=== PATIENT | female | born 1945 | race Caucasian/White ===

== ENCOUNTER 2023-11-28 14:49 | Emergency (ER) | payer MEDICARE, SELFPAY ==
--- NOTE | 2023-11-28 15:00 | ED.URI ---
HPI - URI/Sore Throat General Chief Complaint: Upper Respiratory Infection Stated Complaint: chest/head/throat/fatigue Time Seen by Provider: 11/28/23 14:55 Source: patient Mode of arrival: ambulatory Limitations: no limitations History of Present Illness HPI Narrative: Patient is a 78-year-old female who presents with 10 days of cough, ear fullness, head congestion. Cough is worse at night. Patient been taking antihistamines and Mucinex. Denies any fever, chills, nausea, vomiting, diarrhea, sore throat. Related Data Home Medications Medication Instructions Recorded Confirmed atorvastatin 40 mg tablet 40 mg PO DAILY 11/28/23 11/28/23 lisinopril 20 mg tablet 20 mg PO DAILY 11/28/23 11/28/23 Allergies Allergy/AdvReac Type Severity Reaction Status Date / Time No Known Allergies Allergy Verified 11/28/23 15:15 Review of Systems Review of Systems: All systems reviewed & are unremarkable except as noted in HPI and below Constitutional: Constitutional: Denies body ache(s), Denies chills, Denies fatigue, Denies fever(s), Denies headache(s), Denies malaise and Denies weakness Eyes: Eyes: Denies blurry vision, Denies itchy eyes and Denies loss of vision ENT: Denies otalgia, Denies headache(s), Reports nasal congestion, Reports sinus pain, Reports sinus pressure and Denies sore throat Cardiovascular: Cardiovascular: Denies chest pain, Denies irregular heart rhythm and Denies dyspnea Respiratory: Respiratory: Reports cough and Denies dyspnea Gastrointestinal: Gastrointestinal: Denies abdominal pain, Denies diarrhea, Denies nausea and Denies vomiting Musculoskeletal: Musculoskeletal: Denies back pain, Denies myalgias and Denies arthralgias Integumentary/Breasts: Skin/Breast: Denies pruritus and Denies rash Neurologic: Denies headache(s), Denies loss of vision and Denies weakness Psychiatric: Psychiatric: Reports no additional psychiatric complaints Endocrine: Endocrine: Denies fatigue Allergic/Immunologic: Allergic/Immunologic: Denies itchy eyes PMFSH Comments At time of signature, agree with nursing past medical, surgical, social and family history. There is no relevant family history pertinent to the presenting complaint. Exam Const: General: cooperative, healthy appearing, comfortable, no acute distress and well nourished Nutritional Appearance: well nourished Orientation/consciousness: patient oriented x3 Limitations: no limitations HENMT: Head: normal to inspection, normocephalic and atraumatic Ears: hearing grossly normal bilaterally, external ears normal, TM's normal bilaterally, EAC's normal and no periauricular adenopathy Face/Nose/Sinus: Normal external nose present, Abnormal mucous membranes and turbinates present erythematous bilateral and diffuse, normal facial exam, face symmetric and Facial tenderness on exam of face and sinuses Face and sinus: normal facial exam, sinuses nontender and face symmetric Mouth: Yes Normal oral and palatal mucosa present, Yes lip normal, Yes tongue normal, Yes Normal salivary glands and ducts present, Yes oropharynx normal and Yes moist mucous membranes Teeth and gingiva: dentition normal Throat: posterior oropharynx normal, tonsils normal and uvula midline Eyes: General: appearance normal, both eyes and all related structures Alignment and Position: alignment normal and position normal Periorbital: periorbital findings normal Eyelids: eyelids normal Pupils: Equal, round and reactive pupils present Neck: Neck: normal visual inspection, full ROM, no lymphadenopathy and supple Chest: Chest palpation & inspection: normal inspection of the chest and normal palpation of entire chest wall Resp: Effort & Inspection: normal respiratory effort and able to speak in complete sentences Auscultation: clear to auscultation bilaterally, no crackles, no rales, no rhonchi and no wheezes Cardio: Rate: regular rate Rhythm: regular rhythm Heart sounds: S1 normal heart sound present
[2023-11-28 15:03] VITALS: BP 155/72; PULSE 93; RESP 16; TEMP 36.5; O2SAT 94
== END 2023-11-28 16:09 | disposition home or self-care (01) ==
PROVIDERS: Emergency Provider Nurse Practitioner Family; PCP Hospitalist
DX: J01.40 Acute pansinusitis, unspecified (principal); Z79.899 Other long term (current) drug therapy
CPT/HCPCS: 99213; G0463

== ENCOUNTER 2025-10-22 15:09 | Emergency (ER) | payer MEDICARE, SELFPAY ==
--- OUTSIDE RECORDS SUMMARY | 2025-10-22 15:11 | XMS_ITS | Data Portability ---
Author Organization [facility] Address [address] [place] [address] [place] [address] Care Team Providers Care Boat Canvas Installer Name Role Phone RADHA BAILEY Primary Care Provider [phone] Assessment Encounter Date Assessment Date Assessment LastModified by Organization Details LastModified Time 04/20/2025 04/20/2025 Ms. Li presents to the office today for hospital follow-up after being admitted from 04/06 to 04/08 due to a fall resulting in a subdural hematoma and subarachnoid hemorrhage. During the visit, the patient reports feeling well and denies any new or worsening symptoms. She is alert, oriented, and in no apparent distress. A neurosurgery follow-up is scheduled for 05/10. Not available 04/23/2025 08:49:28 05/12/2025 05/12/2025 Ms. Li presents for scalp staple removal placed 4 weeks ago after head injury. Denies pain, drainage, redness, or other concerns. Healing well, no associated symptoms. Not available 06/01/2025 17:45:06 05/18/2025 05/18/2025 Ms. Matthew presents for follow up appointment. Not available 06/01/2025 17:55:05 06/16/2025 06/16/2025 Ms. Li is here for Medicare wellness exam. Not available 06/27/2025 19:26:40 Plan of Treatment Reminders Order Date Submit Date Provider Last Modified By Organization Details Last Modified Time Details Appointments ANY 15 2024 10:45A M RADHA BAILEY NP Not available Not available Not available ANY 15 2025 01:45P M RADHA BAILEY NP Not available Not available Not available Lab None recorded. Referral None recorded. Procedures None recorded. Surgeries None recorded. Imaging None recorded. Medication Orders amlodipin e 5 mg tablet 2024 025 [facility], [address] [place] [address], [address], 05/18/2025 15:45:21 Patient TargetsNo targets recorded. Patient Instructions Encounter Date Encounter Id Patient Instructions Last Modified By Organization Details Last Modified Time 04/20/2025 [id number] A healthy lifestyle: care instructions Not available 04/23/2025 08:47:50 - Always present to ER or Urgent Care with any progression of/alarming symptoms, significant changes in symptoms or any concerning or urgent matters Not available 04/23/2025 08:31:05 05/12/2025 [id number] - Always present to ER or Urgent Care with any progression of/alarming symptoms, significant changes in symptoms or any concerning or urgent matters Not available 06/01/2025 17:52:20 05/18/2025 [id number] - Always present to ER or Urgent Care with any progression of/alarming symptoms, significant changes in symptoms or any concerning or urgent matters Not available 06/01/2025 17:57:42 06/16/2025 [id number] advance care planning: care instructions Not available 06/16/2025 15:26:27 preventing falls : care instructions Not available 06/16/2025 15:26:27 Quitting Tobacco : Care Instructions Not available 06/16/2025 15:26:27 Medicare Wellnes s Preventive Checklist Not available 06/16/2025 15:26:27 eating healthy foods: care instructions Not available 06/16/2025 15:26:27 AD8 Dementia Screening Interview Not available 06/16/2025 15:26:27 - Always present to ER or Urgent Care with any progression of/alarming symptoms, significant changes in symptoms or any concerning or urgent matters Not available 06/27/2025 19:26:13 Reason for Referral None Reported. Results Created Date Observation Date Name Description Value Unit Range Abnormal Flag Note LastModifiedBy Organization Detail LastModifiedTime 10/17/20 25 10/17/2025 imagi ng/di agnos tic resul t No observ ation record ed. [address] , [place], [address], 10/18/2025 08:27:18 Result Notes None recorded. Problems Name Problem SNOMED Code Status Onset Date Resolution Date Notes Provider Name and Address Organization Details Recorded Time Hypertensiv e disorder 98709767 Active 2023 RADHA BAILEY NP Attn: Darwin guthrie,[address] [facility], [place], [address], [place] [facility] 4 14:57:35 Hyperlipide caitlin 09330042 Active 2023 RADHA BAILEY NP Attn: Darwin guthrie,[address] [facility], [place], [address], [place] [facility] 4 14:57:43 Colonoscopy declined 3789468602157 00 Active 2023 RADHA BAILEY NP Attn: Darwin guthrie,[address] [facility], [place], [address], [place] [facility] 4 15:08:21 Lumbago with sciatica 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 Active 2023 RADHA BAILEY NP Attn: Darwin guthrie,[address] [facility], [place], [address] [facility] 4 15:08:23 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 Procedures Surgical History Date Name Laterality Status Provider Name and Address Organization Details Recorded Time cholecystectomy completed Macey Johnson LPN [facility] 03/10/2024 14:32:37 excision of cyst of ovary completed Macey Johnson LPN [facility] 03/10/2024 14:33:09 Imaging Results None recorded. Procedure Notes None recorded. Medical Equipment None Reported. Allergies Allergen ID Allergen Name Allergen Category Reaction Reaction Severity Criticality Documentation Date Start Date Code Code System Note Provider Name and Address Organization Details Recorded Time 618022 morphine medicatio n rash Not available Not available 04/22/20252011 7052 RxNorm RADHA BAILEY NP Attn: Darwin guthrie,[address] [facility], [place], [address], [facility] 5 08:45:17 Medications Name Sig Start Date Stop Date Status Note LastModified by Organization Details LastModified Time atorvastati n 40 mg tablet TAKE 1 TABLET BY MOUTH ONCE DAILY IN THE EVENING active Not Available Not Available No t Available azithromyci n 250 mg tablet TAKE 2 TABLETS BY MOUTH ON DAY 1, AND THEN TAKE 1 TABLET BY MOUTH ONCE A DAY ON DAY 2 THROUGH DAY 5 04/20 completed Not Available Not Available Not Available levetiracet am 500 mg tablet TAKE 1 TABLET BY MOUTH TWICE DAILY FOR 11 DOSES 04/20 completed Not Available Not Available Not Available hydrocodone 5 mg-acetamin ophen 325 mg tablet TAKE 1 TABLET BY MOUTH EVERY 6 HOURS NEEDED FOR PAIN FOR UP TO 8 DOSES 10/21 completed Not Available Not Available Not Available lisinopril 20 mg tablet TAKE 1 TABLET BY MOUTH TWICE DAILY active Not Available Not Available No t Available amlodipine 2.5 mg tablet TAKE 1 TABLET BY MOUTH ONCE DAILY 06/01 completed Not Available Not Available Not Available amlodipine 5 mg tablet Take 1 tablet every day by oral route for 30 days. 2024 active Not Available Not Available Not Avai lable doxycycline monohydrate 100 mg tablet TAKE 1 TABLET BY MOUTH TWICE DAILY FOR 7 DAYS 03/10 completed Not Available Not Available Not Available benzonatate 100 mg capsule TAKE 1 CAPSULE BY MOUTH TWICE DAILY NEEDED FOR COUGH 03/10 completed Not Available Not Available Not Available lidocaine 5 % topical patch APPLY 1 TOPICALLY ONCE DAILY (MAY WEAR UP TO 12 HOURS) active Not Available Not Available No t Available methylpredn isolone 4 mg tablets in a dose pack USE DIRECTED active Not Available Not Available No t Available fluticasone propionate 50 mcg/actuati on nasal spray,suspe nsion [place] 1 spray every day by intranasa l route as needed. 04/20 completed PRN (10/07) Not Available Not Available Not Available loratadine 10 mg tablet Take 1 tablet every day by oral route for 30 days. 04/20 completed Not Available Not Available Not Available naproxen 500 mg tablet TAKE 1 TABLET BY MOUTH TWICE DAILY WITH MEALS active Not Available Not Available No t Available Vitals Date Recorded Body height Respiratory rate Body mass index (BMI) Body weight Body temperature Heart rate Oxygen saturation Systolic And Diastolic Provider Name and Address Organization Details Last Updated DateTime 5 154.94 cm 16 /min 27.6 kg/m2 97495.2 4 g 96.4 [degF] 83 /min 95 % 152/79 mm[Hg] [facility] 5 14:55:54 Date Recorded Body height Respiratory rate Body mass index (BMI) Body weight Body temperature Heart rate Oxygen saturation Systolic And Diastolic Provider Name and Address Organization Details Last Updated DateTime 5 154.94 cm 16 /min 27.6 kg/m2 21331.2 4 g 96.3 [degF] 84 /min 96 % 149/77 mm[Hg] Alexa [facility] 5 14:19:34 Date Recorded Body height Body mass index (BMI) Body weight Oxygen saturation Heart rate Respiratory rate Body temperature Systolic And Diastolic Provider Name and Address Organization Details Last Updated DateTime 5 154.94 cm 27.5 kg/m2 56179.0 4 g 98 % 87 /min 16 /min 97 [degF] 160/77 mm[Hg] Macey Johnson LPN [facility] 5 15:32:09 Date Recorded Body height Body mass index (BMI) Body weight Oxygen saturation Heart rate Respiratory rate Body temperature Systolic And Diastolic Provider Name and Address Organization Details Last Updated DateTime 5 154.94 cm 27.1 kg/m2 44003.4 6 g 93 % 82 /min 16 /min 96.4 [degF] 111/66 mm[Hg] Jessica Neri MA [facility] 5 15:16:04 Date Recorded Body height Body temperature Respiratory rate Oxygen saturation Heart rate Systolic And Diastolic Provider Name and Address Organization Details Last Updated DateTime 5 154.94 cm 97.3 [degF] 16 /min 95 % 71 /min 180/81 mm[Hg] Maribel Zhong MA [facility] 5 12:08:52 Social History Question Answer Notes LastModified by Organizat ion Details LastModified Time Tobacco Smoking Status Former Smoker stopped 12 years ago20 Macey Johnson LPN [facility], [facility] 03/10/2024 14:28:22 Do You Have An Advance Directive? No Information not available 03/10/2024 Are You Blind Or Do You Have Difficulty Seeing? No Information not available 03/10/2024 What Is Your Level Of Caffeine Consumption? Moderate Coffee Information not available 10/07/2024 In The 14 Days Before Symptom Onset, Have You Had Close Contact With A Laboratory-confir med COVID-19 While That Case Was Ill? No Information not available 03/10/2024 In The 14 Days Before Symptom Onset, Have You Had Close Contact With A Person Who Is Under Investigation For COVID-19 While That Person Was Ill? No Information not available 03/10/2024 Have You Been To An Area Known To Be High Risk For COVID-19? No Information not available 03/10/2024 Are You Deaf Or Do You Have Serious Difficulty Hearing? No Information not available 03/10/2024 What Type Of Diet Are You Following? REGULAR Information not available 03/10/2024 Are There Any Guns Present In Your Home? No Information not available 03/10/2024 What Was The Date Of Your Most Recent Tobacco Screening? 10/21/2025 Information not available 10/21/2025 How Many Children Do You Have? 3 Information not available 03/10/2024 What Is Your Current Pack Years? 30ormorepack years Information not available 06/16/2025 What Is Your Relationship Status? Information not available 03/10/2024 Do You Use Your Seat Belt Or Car Seat Routinely? Yes Information not available 03/10/2024 Do You Have Smoke And Carbon Monoxide Detectors In Your Home? Yes Information not available 03/10/2024 At What Age Did You Start Smoking Tobacco? 19 Information not available 03/10/2024 Are You Passively Exposed To Smoke? No Information no t available 03/10/2024 How Much Tobacco Do You Smoke? No Information not available 06/16/2025 Do You Use Sunscreen Routinely? No Information not available 03/10/2024 Has Tobacco Cessation Counseling Been Provided? Yes Information not available 10/07/2024 On What Date Was Tobacco Cessation Counseling Provided? 10/21/2025 Information not available 10/21/2025 How Many Years Have You Smoked Tobacco? 47 Information not available 03/10/2024 Sex: Female Functional Status Question Answer Note LastModified by Organizat ion Details LastModified Time Do you use any illicit or recreational drugs? No Information not available 03/10/2024 Do you or have you ever used any other forms of tobacco or nicotine? No Information not available 03/10/2024 What is your level of alcohol consumption? Occasional Information not available 03/10/2024 Are you currently employed? No Information not available 03/10/2024 Are you able to care for yourself independently? Yes Information not available 03/10/2024 What is your exercise level? Moderate walk daily Information not available 03/10/2024 Mental Status Question Answer Note LastModified by Organization D etails LastModified Time Do you feel stressed (tense, restless, nervous, or anxious, or unable to sleep at night)? [id number] Information not available 03/10/2024 Family History Relationship Description Onset Age of this Age Resolved Age Notes LastModified by Organization Details LastModified Time Father No current problems or disability [email or web address] Not available 08/2024 14:26:56 Mother No current problems or disability [email or web address] Not available 08/2024 14:26:56 Notes:Updated: 12/07/23, Medical History Condition Response Muscle, Joint, or Bone Problems Y High Blood Pressure Y Arthritis Y GI Problems Y Anemia Y Gynecological HistoryNo gynecological history recorded. Obstetrics History GPAL:G 3 P 3 0 0 2 Type Value Full Term 3 Living 2 Total 3 Immunizations Vaccine Type Date Status Note Provider Nam e and Address Organization Details Recorded Time Influenza, high-dose, quadrivalent, PF 0 completed RADHA BAILEY NP Attn: [address] [place], [address], [place] [facility] 03/10/2024 14:56:12 Influenza, high-dose, quadrivalent, PF 3 completed RADHA BAILEY NP Attn: [address] [place], [address], [place] [facility] 03/10/2024 14:56:12 Influenza, high-dose, quadrivalent, PF 1 completed RADHA BAILEY NP Attn: [address] [place], [address], [place] [facility] 03/10/2024 14:56:12 Influenza, high-dose, quadrivalent, PF 2 completed RADHA BAILEY NP Attn: [address] [place], [address], [place] [facility] 03/10/2024 14:56:12 COVID-19, mRNA, LNP-S, PF, 100 mcg/0.5mL dose or 50 mcg/0.25mL dose 1 completed RADHA BAILEY SERV[employer] TECHNICIAN COPIER Attn: [address] [facility], [place], [place], [address] [place] [address], [place] [facility] 03/10/2024 14:56:12 COVID-19, mRNA, LNP-S, PF, 100 mcg/0.5mL dose or 50 mcg/0.25mL dose 1 completed RADHA BAILEY, SERVICE TECHNICIAN COPIER Attn: [address] [facility], [place], [place], [address] [place] [address], [place] [facility] 03/10/2024 14:56:12 COVID-19, mRNA, LNP-S, PF, 100 mcg/0.5mL dose or 50 mcg/0.25mL dose 1 completed RADHA BAILEY, SERVICE TECHNICIAN COPIER Attn: [address] [facility], [place], [place], [address] [place] [address], [place] [facility] 03/10/2024 14:56:12 COVID-19, mRNA, LNP-S, bivalent, PF, 50 mcg/0.5 mL or 25mcg/0.25 mL dose 2 completed RADHA BAILEY, SERVICE TECHNICIAN COPIER Attn: [address] [facility], [place], [place], [address] [place] [address], [place] [facility] 03/10/2024 14:56:12 COVID-19, mRNA, LNP-S, PF, deandra-sucrose, 30 mcg/0.3 mL 3 completed RADHA BAILEY, SERVICE TECHNICIAN COPIER Attn: [address] [facility], [place], [place], [address] [place] [address], [place] [facility] 03/10/2024 14:56:12 pneumococcal polysaccharide PPV23 1 completed RADHA BAILEY, SERVICE TECHNICIAN COPIER Attn: [address] [facility], [place], [place], [address] [place] [address], [place] [facility] 03/10/2024 14:56:12 influenza, unspecified formulation 3 completed RADHA BAILEY, SERVICE TECHNICIAN COPIER Attn: [address] [facility], [place], [address], [place] [facility] 03/10/2024 14:56:12 Tdap 1 completed RADHA BAILEY NP Attn: [address] [facility], [place], [address], [place] [facility] 03/10/2024 14:56:12 Pneumococcal conjugate PCV 13 2 completed RADHA BAILEY NP Attn: [address] [facility], [place], [address], [place] [facility] 03/10/2024 14:56:12 Pneumococcal conjugate PCV 13 7 completed RADHA BAILEY NP Attn: [address] [facility], [place], [place], [address] [place] [address], [place] [facility] 03/10/2024 14:56:12 Pneumococcal conjugate PCV 13 7 completed RADHA BAILEY NP Attn: [address]ing[address] [facility], [place], [address], [place] [facility] 03/10/2024 14:56:12 Influenza, recombinant, trivalent, PF 4 completed Not Available [facility] 10/21/2025 10:55:27 COVID-19, mRNA, LNP-S, PF, 50 mcg/0.5 mL 4 completed Not Available [facility] 10/21/2025 10:55:27 Tdap 5 completed Not Available [facility] 10/21/2025 10:55:27 COVID-19, mRNA, LNP-S, PF, 10 mcg/0.2 mL 5 completed Not Available [facility] 10/21/2025 10:55:27 Influenza, high-dose, trivalent, PF 5 completed [facility] Available [facility] 10/21/2025 10:55:27 Past Encounters Encounter ID Performer Location Encounter Start Date Encounter Closed Date Diagnosis/Indication Diagnosis SNOMED-CT Code Diagnosis ICD10 Code Diagnosis IMO Codes Diagnosis Note [id number] RADHA BAILEY NP [facility] [address] [place] [address] 03/10/2024 13:58:47 03/18/2024 13:00:36 Hypertensive disorder 56035732 I10 - b/p in office today 183/76, repeat 166/76- Continue medication as prescribed and diet/exerc ise as previously discussed. - Take occasional BP s , call if consistent ly >140/90.- Discussed reasons for sooner f/u than 6 months.- Patient verbalizes understand ing. Adult [facility] th examination 656268586 Z00.00 - Discussed with patient findings, diagnoses, and prognosis. - Discussed plan of care including treatment options, risks, and benefits with patients. Patient expressed understand ing.- The following interventi ons were recommende d: heart healthy low-fat, low-sodium diet, ideal body weight, regular exercise, medication s compliance , and medical follow-up as noted. Hyperlipidemia 76671594 E78.5 Lumbago with sciatica 20 5062725 M54.42 - Apply heat to low back 10-15 minutes 3 times a day. - No heavy lifting over 10 LBS. - Stretching exercises per handout twice daily. ( take muscle relaxer/pa in med- 15 min prior) - Avoid bending or twisting at the waist; keep hips and shoulders aligned at all times. - Avoid sitting if possible, unless it feels better than standing. - Do not do anything that makes your symptoms worse. - RTC for worsening symptoms Colonoscopy declined 517 3176062 88134 Z53.20 - Patient declined [id number] RADHA BAILEY NP [facility] [address] [place] [address] 03/30/2024 15:22:36 04/03/2024 14:10:40 Hypertensive disorder 53982656 I10 - b/p in office today 171/95- Continue medication as prescribed and diet/exerc ise as previously discussed. - Take occasional BP s , call if consistent ly >140/90.- Discussed reasons for sooner f/u than 3 weeks- Patient verbalizes understand ing. Obesity 326194271 E66.9 advised low fat, low cholestero l, low carb diet, regular exercise and weight reduction. [id number] Bijan Goddard MD [facility] [address] [place] [address] 04/20/2024 14:24:28 04/28/2024 14:48:02 Hypertensive disorder 85211121 I10 - b/p in office today 162/81- Continue Lisinopril as prescribed and diet/exerc ise as previously discussed. - Take occasional BP s , call if consistent ly >140/90.- Discussed reasons for sooner f/u than 3 weeks- Patient verbalizes understand ing. Hyperlipidemia 08964952 E78.5 Adult [facility] th examination 139032489 Z00.00 Health Risk Assessment collected and reviewed [id number] Bijan Goddard MD [facility] [address] [place] [address] 06/01/2024 14:41:26 06/02/2024 15:53:43 Hypertensive disorder 43443983 I10 - b/p in office today 125/68- Continue medication as prescribed and diet/exerc ise as previously discussed. - Take occasional BP s , call if consistent ly >140/90.- Discussed reasons for sooner f/u than 3 weeks- Patient verbalizes understand ing. Chronic sinusitis 616185 00 J32.9 Counseled on sinusitis and medication s/antibiot ic use. Ibuprofen/ Tylenol for pain. Encouraged to increase fluid intake. Hyperlipidemia 78797330 E78.5 [id number] Bijan Goddard MD [facility] [address] [place] [address] 10/07/2024 15:44:19 10/08/2024 11:32:06 Hypertensive disorder 69442164 I10 - b/p in office today 137/70- Continue medication as prescribed and diet/exerc ise as previously discussed. - Take occasional BP s , call if consistent ly >140/90.- Discussed reasons for sooner f/u than 3 weeks- Patient verbalizes understand ing. [id number] Bijan Goddard MD [facility] [address] [place] [address] 04/20/2025 14:37:23 04/23/2025 10:58:26 Hypertensive disorder 43914245 I10 - b/p in office today 152/79- Continue medication as prescribed and diet/exerc ise as previously discussed. - Take occasional BP s , call if consistent ly >140/90.- Discussed reasons for sooner f/u than 4 weeks- Patient verbalizes understand ing. Overweight 964278923 E66 .3 advised low fat, low cholestero l, low carb diet, regular exercise and weight reduction. Hematoma o f subdural space of neuraxis 129467150 S06.5XAA 63467 Subdural hematoma / Subarachno id hemorrhage status post fall (04/06 0 04/08 admission) : Patient is currently stable and reports no acute symptoms. Continue monitoring for any signs of neurologic al deteriorat ion (e.g., headache, confusion, weakness, vision changes). Neurosurge ry follow-up is scheduled for 05/10. Reinforced fall precaution s and safety measures at home. History of fall 55202815 9 Z91.81 [id number] Reinforced fall precaution s and safety measures at home. [id number] Bijan Goddard MD [address] [place] [address] 05/12/2025 14:13:02 06/02/2025 10:37:35 Surgical follow-up 849648908 Z48.02 [id number] Status-pos t scalp laceration , stable and healing appropriat maryam. Ready for staple removal. Removed single scalp staple.Are a cleaned; no further treatment needed.No signs of infection or complicati ons.Wound care instructio ns provided.R eturn PRN for any new symptoms. [id number] Bijan Goddard MD [address] [place] [address] 05/18/2025 15:27:10 06/02/2025 10:44:28 Hypertensive disorder 58820013 I10 - b/p in office today 160/77- Increase Amlodipine to 5 mg daily- Continue Lisinopril 20 mg daily- Take medication as prescribed and diet/exerc ise as previously discussed. - Take occasional BP s , call if consistent ly >140/90.- Discussed reasons for sooner f/u than 4 weeks- Patient verbalizes understand ing. [id number] Bijan Goddard MD [facility] [address] [place] [address] 06/16/2025 14:54:25 06/28/2025 11:02:33 Adult health examination 824660720 Z00.00 Health Risk Assessment collected and reviewed Goals Section Goal Description Progress Status Start Date LastModified by Organization Details LastModified Time Exercise Regularly Follows a regular exercise regimen or instructed exercise plan as per care team recommendati on(s) [facility] Macey Johnson LPN Information not available 05/05/2025 14:33:02 Diet Adherence Follows prescribed or recommended [facility] Macey Johnson LPN Information not available 05/05/2025 14:33:02 Smoking Cessation [facility] Macey Johnson LPN Information not available 05/12/2024 16:08:51 Lipid Levels Maintains normal lipid levels as defined by care [facility] Macey Johnson LPN Information not available 03/24/2024 19:02:23 Blood Pressure Maintains blood pressure goal as defined by care team María Elena active 2023 Macey Johnson LPN Information not available 03/24/2024 19:01:48 Weight Maintenance Exhibits stable weight with normal fluctuation [facility] active 2023 Macey Johnson LPN Information not available 03/24/2024 19:01:05 Fall Safety Reports no recent falls and/or fall injuries None active 2024 Macey Johnson LPN Information not available 05/05/2025 14:33:33 Health Concerns Section Related Observation LastModified by Organization Detai ls LastModified Time None Recorded Concern Status LastModified by Organization Details LastModified Time adult care Active Macey Johnson LPN Not Available 16:08:51 Hyperlipidemia Active Macey Johnson LPN Not Availabl e 03/24/2024 19:02:23 Hypertensive disorder Active Macey Johnson LPN Not A vailable 03/24/2024 19:01:48 History of fall Active Macey Johnson LPN Not Availab le 05/05/2025 14:33:21 Overweight Active Macey Johnson LPN Not Available 14:33:02 Lumbago with sciatica Inactive Macey Johnson LPN Not A vailable 05/12/2024 16:09:00 Adult health examination Inactive Macey Johnson LPN Not Available 05/12/2024 16:06:18 Chronic sinusitis Inactive Macey Johnson LPN Not Avail able 05/05/2025 14:30:53 Hematoma of subdural space of neuraxis Inactive Macey Johnson LPN Not Available 10/04/2025 20:23:06 Advance Directives Directive N: Payers Insurance Date Sequence Insurance Name Policy Number Policy Zendejas Covered Member ID Zendejas Member ID Guarantor Name 03/10/2024 2 *SELF PAY* Mi ldred L Li 09/07/2025 1 [facility] (MEDICARE REPLACEMENT/AD VANTAGE - HMO) [id number] Tiff L Li [id number] Tiff L Li 10/20/2025 1 [employer] [place] (MEDICARE REPLACEMENT HMO) [id number] Tiff L Li [id number] Tiff L Guillermo Notes Date Note Type Note Provider Name and Address Organization Details Recorded Time 04/20/2025 text/html Hypertension F/UReported by PatientHPIFor associated symptoms, patient reportsno dizziness,no lightheadedness,no chest pain,no shortness of breath,no palpitations, andno edema. For medications, patient reportstaking medications as directed.ROS as noted in the HPI Ms. Li presents to the office today for hospital follow-up after being admitted from 04/06 to 04/08 due to a fall resulting in a subdural hematoma and subarachnoid hemorrhage. During the visit, the patient reports feeling well and denies any new or worsening symptoms. She is alert, oriented, and in no apparent distress. A neurosurgery follow-up is scheduled for 05/10. RADHA BAILEY NP Attn: Accounting,[address] [place], [address], [facility] 04/23/2025 08:50:40 05/12/2025 text/html ROS as noted in the HPI Ms. Li presents for scalp staple removal placed 4 weeks ago after head injury. Denies pain, drainage, redness, or other concerns. Healing well, no associated symptoms. RADHA BAILEY NP Attn: Accounting[address] [facility], [place], [address], [facility] 06/01/2025 17:53:39 05/18/2025 text/html Hypertension F/UReported by PatientHPIFor associated symptoms, patient reportsno dizziness,no lightheadedness,no chest pain,no shortness of breath,no palpitations, andno edema. For medications, patient reportstaking medications as directed.ROS as noted in the HPI Ms. Matthew presents for follow up appointment. RADHA BAILEY NP Attn: Accounting[address] [facility], [place], [address], [facility] 06/01/2025 17:58:21 06/16/2025 text/html MAW 2Reported by PatientSocial/Behavior al HistoryFor diet and nutrition, patient reportshealthy dietanddiscussed vitamin and supplement use. For fracture risk, patient reportsno history of fracturesandno sudden unexplained fractures.Mental Status:For concentration and memory, patient reportsno decreased concentrating ability,no memory lapses or loss, anddoes not forget words. For speech/motor difficulties, patient reportsno speech difficulties,no difficulty expressing formulated concepts,no difficulty with fine manipulative tasks,no difficulty writing/copying,no slowed reaction time, anddoes not knock things over when trying to pick them up.Functional AbilityFor vision, patient reportsworse with distance. For home safety, patient reportsdoes not have hand bars in the bathroom/showerbut reportsno unsafe chilo hazzards,working smoke/co detectors,no fire arms, andgood lighting in the home. For hearing, patient reportsno loss of hearing. For activities of daily living, patient reportsable to bathe with limited or no assistance,able to contol urination and bowels,able to dress with limited or no assistance,able to feed self with limited or no assistance,able to get out of chair or bed with limited or no assistance,able to groom with limited or no assistance, andable to toilet with limited or no assistance. For instrumental activities of daily living, patient reportsable to do house work with limited or no assistance,able to grocery shop with limited or no assistance,able to manage medications with limited or no assistance,able to manage money with limited or no assistance,able to prepare meals with limited or no assistance, andable to use the phone with limited or no assistance. For falls risk assessment, patient reportsno fall since last visit,no dizziness/vertigo, andfall(s) in the past year 1.ROS as noted in the HPI Ms. Li is here for Medicare wellness exam. RADHA BAILEY NP Attn: Accounting,[address] [facility], [place], [address], [facility] 06/27/2025 19:32:21 OBGyn Episode No OBEpisode recorded.
--- OUTSIDE RECORDS SUMMARY | 2025-10-22 15:11 | XMS_ITS | Clinical Summary ---
Author Organization [facility] Address [address] [place] [address] Phone Care Team Providers Care Bullet Maker Name Role Phone Unavailable Primary Care Provider Unavailabl e Allergies Active Allergy Reactions Criticality Noted Date Comments Morphine Rash 01/11/2012 Medications atorvastatin (LIPITOR) 40 MG Tablet Take 1 Tablet by mouth nightly. 90 Tablet 1 02/23/2021 Active lisinopril (PRINIVIL, ZESTRIL) 20 MG Tablet Take 1 tablet by mouth twice daily 180 Tablet 06/02/2021 Active Active Problems Problem Noted Date Diagnosed Date Cardiac murmur 07/15/2018 Hyperlipidemia 10/04/2015 Essential hypertension, benign 10/04/2015 Immunizations Immunization Administration Dates Next Due COVID-19, MRNA, LNP-S, BIVAL ENT , MODERNA, 50 MCG/0.5 ML (12+) 12/01/2024 Covid-19, Mrna, Lnp-s, PF, 1 00 mcg/0.5 mL Dose (Moderna) 02/11/2021,01/14/2021 Covid-19, Mrna, Lnp-s, PF, 5 0 mcg/0.25 mL dose (Moderna) 11/01/2021 Influenza Vaccine greater than 3 yrs 09/22/2020 Influenza, High-dose, Quadrivalent 10/11/2021, Influenza, high-dose, trivalent, PF 12/01/2024,1 Pneumococcal Vaccine - 13 Valent 04/26/2017,05/2 03/2017,01/11/2012 Pneumococcal Vaccine Adult - 23 Valent 01/07/202 1 Family History Medical History Relation Name Comments No Known Problems Father glenis No Known Problems Mother daphne Relation Name Status Comments Father glenis Mother daphne Social History Tobacco Use Types Packs/Day Years Used Date Smoking Tobacco: Former Cigarettes 0 Q uit: 03/08/2010 Smokeless Tobacco: Never Alcohol Use Standard Drinks/Week Comments Yes 0 (1 standard drink = 0.6 oz pur e alcohol) socially PHQ-2 Answer Date Recorded Total Score - Questions 1-9 0 06/2021 Sexually Active Control Partners Comments Not Currently Comments No Sex and Gender Information Value Date Recorded Sex Assigned at Not on file Legal Sex Female 10:12 PM CDT Gender Identity Not on file Sexual Orientation Not on file Last Filed Vital Signs Vital Sign Reading Time Taken Comments Blood Pressure 134/72 02/23/2021 2:44 PM CDT Pulse 88 02/23/2021 2:44 PM CDT Temperature 35.1 C (95.2 F) 02/23/2021 2:44 PM CDT Respiratory Rate 18 02/21/2021 4:47 PM CDT Oxygen Saturation 96% 02/23/2021 2:44 PM CDT Inhaled Oxygen Concentration - - Weight 72.1 kg (159 lb) 02/23/2021 2:44 PM CDT Height 154.9 cm (5' 1) 02/23/2021 2:44 PM CDT Body Mass Index 30.04 02/23/2021 2:44 PM CDT Plan of Treatment Health Maintenance Due Date Last Done Comments Hepatitis C Virus (HCV) Screening 1945 TdaP Immunization 1945 Varicella Immunization (1 of 2 - 13+ 2-dose series) 1957 Medicare Initial AWV [id number] 05/02/2010 Respiratory Syncytial Virus (RSV) Immunization (Adult) (1 - 1-dose 75+ series) 2019 Influenza Immunization (#1) 2025 12/12/2023, 10/11/2021, 09/22/2020, Additional history exists SARS-COV-2 Immunization (2024- season) 2025 12/01/2024, 11/01/2021, 02/11/2021, Additional history exists Pneumococcal Immunization (50+ years) Completed 12/08/2020, 04/26/2017, 04/24/2017, Additional history exists Pneumococcal Immunization Combined Discontinued 12/08/2020, 04/26/2017, 04/24/2017, Additional history exists Hepatitis B Immunization Aged Out No longer eligible based on patient's age to complete this topic Human Papillomavirus (HPV) Immunization Aged Out No longer eligible based on patient's age to complete this topic Meningococcal Immunization (ACWY) Aged Out No longer eligible based on patient's age to complete this topic Rotavirus Immunization Aged Out No lo nger eligible based on patient's age to complete this topic Zoster Immunization Discontinued Insurance MEDICARE [employer] [facility]
--- OUTSIDE RECORDS SUMMARY | 2025-10-22 15:11 | XMS_ITS | Clinical Summary ---
Author Organization [facility] Address [address] [place] [address] Care Team Providers Care Occupational Therapist Assistants Name Role Phone Nicolle Champion NP Primary Care Provider [phone] Allergies Active Allergy Reactions Criticality Noted Date Comments Morphine Hives Medium 01/06/2020 Medications lisinopriL (PRINIVIL,ZESTR [place]) 20 mg tablet TAKE 1 TABLET(20 MG) BY MOUTH TWICE DAILY 180 tablet 3 4 Active Additional Information Patient taking differently: 20 mg oral 2 times daily, Reported on 04/07/2025 atorvastatin (LIPITOR) 40 mg tablet TAKE 1 TABLET(40 MG) BY MOUTH DAILY 90 tablet 1 4 Active levETIRAcetam (KEPPRA) 500 mg tablet Take 1 tablet (500 mg total) by mouth 2 (two) times a day for 11 doses 11 tablet 5 Active acetaminophen (TYLENOL) 325 mg tablet Take 2 tablets (650 mg total) by mouth every 6 (six) hours as needed for pain 60 tablet 5 Active senna-docusate (PERICOLACE) 8.6-50 mg Take 2 tablets by mouth nightly 30 tablet 5 Active methylPREDNISol one (MEDROL DOSEPACK) 4 mg Dosepack Take as directed on package 1 packet 5 10/23/20 25 Active naproxen (NAPROSYN) 500 mg tablet Take 1 tablet (500 mg total) by mouth 2 (two) times a day with meals 30 tablet 5 Active lidocaine (LIDODERM) 5 % Place 1 patch on the skin daily for 12 hours Remove & discard patch within 12 hours or as directed by MD. 14 patch 5 10/31/20 25 Active HYDROcodone-blake taminophen (NORCO) 5-325 mg per tabletIndicatio ns:Pain Take 1 tablet by mouth every 6 (six) hours as needed for pain for up to 8 doses 8 tablet 5 Active Active Problems Problem Noted Date Diagnosed Date Acute traumatic pain 04/08/2025 Assessment & Plan (04/08/2025 10:40 AM CDT): - Tylenol 650mg q6h - Oxycodone 2.5mg q4h PRN Discharge planning issues 04/07/2025 Assessment & Plan (04/08/2025 10:30 AM CDT): 04/07: Transfer out of the ICU, Okay for q 4 hour neuro checks, Pending BI consult 04/08: Patient is medically stable for discharge, SW/CM updated. 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 (Adult neurosurgery outpatient clinic phone number: [phone]) Cardiac murmur 07/15/2018 Assessment & Plan (04/07/2025 3:27 PM CDT): - ECHO 2018: EF 65 to 70 %, moderate mitral annular calcification, aortic cusps appear mildly sclerotic Assessment & Plan (10/30/2022 5:33 PM FIBERGLASS INSULATION INSTALLER): Stable, moderate mitral calcification; no signs or symptoms of cardiac disease Continue to monitor, will get echo if needed Assessment & Plan (04/26/2022 4:56 PM CDT): Stable, patient has known murmur, with echo in 2018 demonstrating annular calcification of the mitral valve and scar [place] cuss Will continue to monitor; patient has no signs or symptoms of worsening valvular disease Essential hypertension, benign 10/04/2015 Assessment & Plan (04/07/2025 3:25 PM CDT): - Home Lisinopril 20 continued Assessment & Plan (11/05/2023 2:14 PM FIBERGLASS INSULATION INSTALLER): Stable, well controlled; blood pressure at goal today Continue lisinopril 20 mg daily Assessment & Plan (04/30/2023 4:23 PM CDT): Stable, well controlled; blood pressure at target, no headaches, no peripheral edema Continue lisinopril 20 mg daily Assessment & Plan (10/30/2022 5:33 PM FIBERGLASS INSULATION INSTALLER): Blood pressure mildly elevated today, had some pain previously when blood pressure check Continue to monitor Continue lisinopril 20 mg b.i.d. Assessment & Plan (04/26/2022 4:55 PM CDT): Stable, blood pressure mildly elevated today and patient reports blood pressure runs mildly high at home Continue lisinopril 20 mg B.i.d.; encouraged patient continue to work on dietary changes as well as increased activity in order to reduce overall blood pressure Assessment & Plan (10/11/2021 1:54 PM FIBERGLASS INSULATION INSTALLER): Stable, mildly elevated today at 144/76, given patient age in previously normal blood pressure measurements will not make any changes to medications Continue lisinopril 20 mg b.i.d. Encouraged patient to continue with tight changes as well as regular aerobic activity to reduce blood pressure and cardiac risk Assessment & Plan (04/27/2021 5:20 PM CDT): Stable, well controlled, will continue lisinopril 20 mg for blood pressure management Hyperlipidemia 10/04/2015 Assessment & Plan (04/07/2025 3:25 PM CDT): - Home Atorvastatin 40 continued Assessment & Plan (11/05/2023 2:14 PM FIBERGLASS INSULATION INSTALLER): Stable, well controlled; high total cholesterol with near optimal LDL and appropriate HDL No side effects from medications Continue atorvastatin 40 mg daily Assessment & Plan (04/30/2023 4:22 PM CDT): Stable, well controlled; total and LDL cholesterol near optimal; desire HDL; no myalgias medication Continue atorvastatin 40 mg daily Assessment & Plan (10/30/2022 5:33 PM FIBERGLASS INSULATION INSTALLER): Stable, well controlled; mildly elevated; no myalgias with current medication Continue atorvastatin 40 mg daily, encourage low-fat high-fiber diet Assessment & Plan (04/26/2022 4:55 PM CDT): Well controlled Continue atorvastatin 40 mg daily Assessment & Plan (10/11/2021 1:54 PM FIBERGLASS INSULATION INSTALLER): Stable, well controlled; total cholesterol was elevated, LDL-C and HDL-C are at target Continue atorvastatin 40 mg daily Assessment & Plan (04/27/2021 5:20 PM CDT): Stable, will continue atorvastatin 40 mg daily Will check lipid panel today Encounters Date Type Department Care Team Description 10/17/2025 10:40 AM F[employer]ERGLASS INSULATION INSTALLER - 10/17/2025 10:46 AM F[employer]ERGLASS INSULATION INSTALLER Emergency [facility] Emergency Department [address] [place] [address] Acute midline low back pain without sciatica (Primary Dx) Discharge Disposition: Discharge to home or self care from Last 3 Months Immunizations Immunization Administration Dates Next Due Influenza, Quadrivalent, Hig h Dose, Preservative Free, Intrr 10/30/2022,10/11/2021,09/22/2020 Influenza, Trivalent, High D ose, Split, Preservative Free, Intramuscular 09/22/2020 Influenza, Trivalent, IM (MDV) 09/22/2020 Influenza, Unspecified 09/01/2023 Moderna SARS-CoV-2 Monovalen t Vaccination (12+ YRS) 02/11/2021,01/14/2021 Moderna Sars-cov-2 Monovalen t Booster Vaccination .25 Ml dose (12+ YRS) 11/01/2021 Pneumococcal Conjugate PCV 13 04/26/2017, 012 Pneumococcal Polysaccharide PPV23 12/08/2020 Tdap 04/06/2025,04/05/2021 Family History Medical History Relation Name Comments Heart disease Brother 1 Hypertension Brother 1 Diabetes Brother 2 Heart disease Brother 2 Hypertension Brother 2 Suicide Attempts Father suicide was cause of Heart disease Mother Hypertension Sister Relation Name Status Comments Brother 1 Alive Brother 2 Alive Father (Age 54) Mother (Age 91) Sister Alive Social History Tobacco Use Types Packs/Day Years Used Date Smoking Tobacco: Former Cigarettes Q uit: 2013 Smokeless Tobacco: Never AUDIT-C Answer Date Recorded Q1: How often do you have a drink containing alc ohol? 2-3 times a week 04/12/2023 Average Number of Drinks Not on file 023 Frequency of Binge Drinking Not on file 04/01 PHQ-2 Answer Date Recorded PHQ-2 Total Score (If total score is 3 or more points, staff should administer the PHQ-9) 0 10/16/2023 Personal Safety Answer Date Recorded Have you ever been in or are you currently in a harmful physical or emotional relationship or is someone making you feel afraid or unsafe? Denies 10/17/2025 Comments Unknown Sex and Gender Information Value Date Recorded Sex Assigned at Not on file Legal Sex Female 10:24 AM FIBERGLASS INSULATION INSTALLER Gender Identity Not on file Sexual Orientation Not on file Last Filed Vital Signs Vital Sign Reading Time Taken Comments Blood Pressure 170/73 10/17/2025 9:54 AM FIBERGLASS INSULATION INSTALLER Pulse 80 10/17/2025 9:54 AM FIBERGLASS INSULATION INSTALLER Temperature 35.9 C (96.7 F) 10/17/2025 9:54 AM FIBERGLASS INSULATION INSTALLER Respiratory Rate 16 10/17/2025 9:54 AM FIBERGLASS INSULATION INSTALLER Oxygen Saturation 96% 10/17/2025 9:54 AM FIBERGLASS INSULATION INSTALLER Inhaled Oxygen Concentration - - Weight 64.4 kg (142 lb) 10/17/2025 9:54 AM FIBERGLASS INSULATION INSTALLER Height 154.9 cm (5' 1) 10/17/2025 9:54 AM FIBERGLASS INSULATION INSTALLER Body Mass Index 26.83 10/17/2025 9:54 AM FIBERGLASS INSULATION INSTALLER Plan of Treatment Health Maintenance Due Date Last Done Comments Osteoporosis Screening-Bone Density Scan 1945 Hepatitis B Screening 1962 Zoster Vaccine (1 of 2) 1994 Depression Screening 10/16/2024 10/16/2023, 04/12/2023, 10/12/2022, Additional history exists Well Visit 65+ 10/16/2024 10/16/2023, 10/02, 10/11/2021 Covid-19 Vaccine (2024-2 6 season) 2025 10/30/2022, 11/01/2021, 02/11/2021, Additional history exists Influenza Vaccine (#1) 2025 , 12/01/2024, 09/01/2023, Additional history exists Fall Risk Assessment 04/08/2026 04/08/2025, 10/16/2023, 10/12/2022, Additional history exists DTaP/Tdap/Td Vaccine (3 - Td or Tdap) 04/06/2035 04/06/2025, 04/05/2021 Pneumococcal vaccine 65+ Completed 021, 04/26/2017, 01/11/2012 Procedures Procedure Name Priority Date/Time Associated Diagnosis Comments XR SPINE LUMBAR 2 OR 3 VIEWS ED 10/17/2025 10:19 AM FIBERGLASS INSULATION INSTALLER from Last 3 Months Results * XR Spine Lumbar 2 or 3 Views (10/17/2025 10:19 AM FIBERGLASS INSULATION INSTALLER) Anatomical Region Laterality Modality Spine N/A Computed Radiogr aphy 10/17/2025 10:2 8 AM F[employer]ERGLASS INSULATION INSTALLER Impressions 10/17/2025 10:28 AM F[employer]ERGLASS INSULATION INSTALLER There is severe degenerative disc disease and vacuum disc phenomenon at the L5-S1 level with associated apparent neural foraminal stenosis. The vertebral body heights are well-maintained. There is no acute fracture. Extensive vascular calcifications of the aorta and branch vessels noted. Electronically signed by: Anshu Taylor M.D., MPH Narrative 10/17/2025 10:28 AM FIBERGLASS INSULATION INSTALLER EXAMINATION: XR SPINE LUMBAR 2 OR 3 VIEWS Procedure Note Anshu Taylor MD - 10/17/2025 EXAMINATION: XR SPINE LUMBAR 2 OR 3 VIEWS IMPRESSION: There is severe degenerative disc disease and vacuum disc phenomenon at the L5-S1 level with associated apparent neural foraminal stenosis. The vertebral body heights are well-maintained. There is no acute fracture. Extensive vascular calcifications of the aorta and branch vessels noted. Electronically signed by: Anshu Taylor M.D., MPH Kristy ANTHONY IM XR PROCEDURES Final Result from Last [address] [place] [address] [address] [facility] [place] [address] [employer] MEDICARE HMO [employer] MED[employer]ARE HMO Advance Directives For more information, please contact: [phone] * Full Code (Latest Code Status on File) Date Activated Date Inactivated Comments 04/07/2025 2:05 AM 04/08/2025 4:58 PM Care Teams Occupational Therapist Assistants Relationship Specialty Start Date End Date Nicolle Champion NP [id number] [place] [id number] PCP - General Family Medicine 04/06/25
--- OUTSIDE RECORDS SUMMARY | 2025-10-22 15:11 | XMS_ITS | Encounter Summary ---
Author Organization [facility] Address [address] [place] [phone] Phone Care Team Providers Care Privacy Analyst Name Role Phone Earl Norman MD Primary Care Provider [phone] Reason for Visit * Reason Comments Medication Refill Encounter Details Date Type Department Care Team (Late st Contact Info) Description 11/28/2020 Refill [facility] - Internal Medicine - [place] [address] [place] [address] Earl Norman MD [address] [place] [address] Medication Refill Social History Tobacco Use Types Packs/Day Years Used Date Smoking Tobacco: Never Assessed Comments Unknown Sex and Gender Information Value Date Recorded Sex Assigned at Not on file Legal Sex Female 10:12 PM CDT Gender Identity Not on file Sexual Orientation Not on file documented as of this encounter Miscellaneous Notes * Telephone Encounter - Claudia Escobedo RN - 11/28/2020 1:26 PM CST Please review and sign. [employer] documented in this encounter Plan of Treatment Not on file documented as of this encounter Visit Diagnoses Not on filedocumented in this encounter Care Teams Privacy Analyst Relationship Specialty Start Date End Date Earl Norman MD PCP - General Internal Medicine 09/01/20 01/19/25 documented as of this encounter
[2025-10-22 15:23] VITALS: BP 174/98; PULSE 85; RESP 16; TEMP 36.6; O2SAT 98
--- NOTE | 2025-10-22 15:41 | ED.BACK ---
HPI - Back Pain/Injury General Chief Complaint: Back Pain/Injury Stated Complaint: back pain/can't walk Time Seen by Provider: 10/22/25 15:43 Source: patient and RN notes reviewed Mode of arrival: ambulatory Limitations: no limitations History of Present Illness HPI Narrative: 80 year old female presents with concern for left low back pain for 9 days. She was pruning in her yard when she started having pain. She did not have an injury or fall. She went to the emergency room, the did x-rays and told her she had a pinched nerve, she was given a Medrol Dosepak, naproxen and hydrocodone. She was given 6 hydrocodone which she took, she said they did not help her pain. She took naproxen a couple of times but said it did not make any difference in her pain. She denies loss of bowel or bladder function, perianal anesthesia, weakness in any extremity, fever, abdominal pain. She reports she is not able to stand up fully straight due to the pain that will shoot down her left leg. MD elicited complaint: back pain Related Data Home Medications ?Medication ?Instructions ?Recorded ?Confirmed ?Last Taken ?Type atorvastatin 40 mg tablet 40 mg PO DAILY 11/28/23 11/28/23 Unknown History lisinopril 20 mg tablet 20 mg PO DAILY 11/28/23 11/28/23 Unknown History amlodipine 5 mg tablet mg 10/22/25 Unknown History methylprednisolone 4 mg tablets in mg 10/22/25 Unknown History a dose pack naproxen 500 mg tablet mg 10/22/25 Unknown History Allergies Allergy/AdvReac Type Severity Reaction Status Date / Time No Known Allergies Allergy Verified 10/22/25 15:38 Review of Systems Review of Systems: CONSTITUTIONAL: Denies malaise, chills, sweats, or fever. CARDIOVASCULAR: Denies chest pain, palpitations, or edema. RESPIRATORY: Denies cough or dyspnea. GASTROINTESTINAL: Denies abdominal pain, nausea, vomiting, diarrhea, loss of bowel function GENITOURINARY: Denies dysuria, hematuria, frequency, loss of bladder function. SKIN: Denies rash or itching. MUSCULOSKELETAL: Reports left low back pain NEUROLOGIC: Denies numbness, weakness, or headache. All systems reviewed & are unremarkable except as noted in HPI and below PMFSH Comments At time of signature, agree with nursing past medical, surgical, social and family history. There is no relevant family history pertinent to the presenting complaint Exam Narrative: GENERAL: Well-appearing, well-nourished, and in no acute distress. HEAD: Normocephalic, atraumatic. EYES: PERRLA and EOMI. NECK: Supple. No lymphadenopathy. CHEST: Clear to auscultation. No respiratory distress. HEART: Regular rate and rhythm. Distal pulses palpable and equal, cap refill <3 seconds ABDOMEN: Soft, nontender, nondistended, normal active bowel sounds, no palpable or pulsatile masses. No CVA tenderness MUSCULOSKELETAL: Normal range of motion and strength in all extremities; 5/5 strength with hip flexion and extension, dorsiflexion and extension, knee flexion and extension, plantar flexion and extension. Normal sensation in dermatomal distributions with sensitivity to light touch and pain. No midline back tenderness to palpation. No paraspinal tenderness. Transfers from sitting to standing. SKIN: Warm, dry, no rash. No ecchymosis, erythema, open wounds to back. NEURO: No focal deficits. Alert and oriented x3. Reflexes intact. Normal gait. PSYCH: Normal mood and affect Course Course Emergency Course: Patient is aware of diagnosis, understands and agrees to treatment plan. Anticipatory guidance given. Patient agrees to follow-up as directed and is aware of reasons to seek care at the emergency department. Portions of this record may have been created with voice recognition software Level of Care: Express Care Visit Vital Signs Vital signs: Vital Signs Temperature 97.8 F 10/22/25 15:23 Pulse Rate 85 10/22/25 15:23 Respiratory Rate 16 10/22/25 15:23 Blood Pressure 174/98 H 10/22/25 15:23 Pulse Oximetry 98 10/22/25 15:23 Oxygen Delivery Room Air 10/22/25 15:23 Temperature 97.8 F 10/22/25 15:23 Pulse Rate 85 10/22/25 15:23 Respiratory Rate 16 10/22/25 15:23 Blood Pressure 174/98 H 10/22/25 15:23 Pulse Oximetry 98 10/22/25 15:23 Oxygen Delivery Room Air 10/22/25 15:23 Reviewed. MDM - Back Pain/Injury MDM Narrative Medical decision making narrative: I evaluated this in the express care. History is obtained from patient who is an independent historian and physical exam was performed.? Available medical records were reviewed. ? Exam findings and relevant testing show no acute concerns or changes; patient is non-toxic appearing and is in no distress. No risk factors or findings concerning for epidural abscess, diskitis, vertebral osteomyelitis, cord compression, cauda equina, vertebral fracture or bone malignancy, AAA, or pyelonephritis. Patient instructed to consider further imaging and workup through their primary care physician as an outpatient if symptoms persist. ? Differential diagnosis and treatment plan were discussed with the patient. Patient agrees with discussion and after shared medical decision making agrees with plan of care. All questions were answered to the patient's satisfaction. Patient is appropriate for outpatient treatment and follow-up. Critical Care Time Critical Care Time Critical Care Time: No Discharge Plan Discharge Clinical Impression: Nonspecific low back pain Patient Disposition: Home Condition: Stable Instructions: Acute Low Back Pain (ED) Additional Instructions: Please follow up with a Primary Care Doctor within 48-72 hours - call for an appointment. Walking and other gentle exercising several times a week has been shown to improve back pain; bed rest is not recommended. Take prednisone as directed, take muscle relaxers every 8 hours as needed for muscle spasm- do not drive or make any important decisions while on this medication for it can make you drowsy. You may apply ice followed by heat to the area as needed. If you experience any worsening pain, swelling, numbness, weakness please go to ER. Contact your doctor or go to the emergency department if you develop problems with bladder or bowel function, weakness or loss of feeling in one or both of your legs, or any other serious concerns. Having an established primary care provider is essential to your health. Please call [phone] for help finding a primary care provider in your area that accepts your insurance. Patient Language: Danish Prescriptions: New cyclobenzaprine 10 mg tablet 10 mg PO TID PRN (Reason: muscle spasm) Qty: 20 0RF prednisone 50 mg tablet 50 mg PO DAILY 5 Days Qty: 5 0RF No Action atorvastatin 40 mg tablet 40 mg PO DAILY lisinopril 20 mg tablet 20 mg PO DAILY amlodipine 5 mg tablet methylprednisolone 4 mg tablets,dose pack naproxen 500 mg tablet Follow-up/Referrals: Claudia Corcoran DO [Physician, Family Practice] PHYSICIAN,[employer] [Primary Care Provider, Internal Medicine] Time of Disposition: 16:08
== END 2025-10-22 16:17 | disposition home or self-care (01) ==
PROVIDERS: Emergency Provider Nurse Practitioner
DX: M54.50 Low back pain, unspecified (principal); I10 Essential (primary) hypertension; E78.00 Pure hypercholesterolemia, unspecified
CPT/HCPCS: 99213; G0463